=== PATIENT | female | born 1975 | race Caucasian/White ===

== ENCOUNTER 2021-06-23 21:17 | Emergency (ER) | payer SELFPAY ==
[~2021-06-23] VITALS: Ht 165.1 cm; Wt 90.7 kg
[2021-06-23] MEDS ORDERED: CASIRIVIMAB/IMDEVIMAB 10 ML in SODIUM CHLORIDE 0.9% 100 ML IV ONE (22:45)
== END 2021-06-24 00:30 | disposition home or self-care (01) ==
LOC: ER 21:25
DX: U07.1 COVID-19 (principal)
CPT/HCPCS: 99282